=== PATIENT | male | born 1995 | race Caucasian/White ===

== ENCOUNTER 2017-01-08 18:29 | Emergency (ER) | payer SELFPAY ==
[~2017-01-08] VITALS: Ht 162.6 cm; Wt 53.1 kg
[2017-01-08 20:35] VITALS: BP 118/69
== END 2017-01-08 21:01 | disposition home or self-care (01) ==
LOC: ED 18:29
DX: S46.912A Strain of unspecified muscle, fascia and tendon at shoulder and upper arm level, left arm, initial encounter (principal); S86.912A Strain of unspecified muscle(s) and tendon(s) at lower leg level, left leg, initial encounter; S80.02XA Contusion of left knee, initial encounter; V49.9XXA Car occupant (driver) (passenger) injured in unspecified traffic accident, initial encounter; Y93.89 Activity, other specified; Y99.8 Other external cause status; Y92.89 Other specified places as the place of occurrence of the external cause